=== PATIENT | male | born 1985 | race Caucasian/White ===

== ENCOUNTER 2020-06-03 19:29 | Emergency (ER) | payer BC, OTHER ==
[~2020-06-03] VITALS: Ht 182.9 cm; Wt 137.0 kg
[2020-06-03] MEDS ORDERED: IBUPROFEN 600MG TABLET PO ONE (22:00)
[2020-06-03 23:51] VITALS: BP 126/81
== END 2020-06-03 23:53 | disposition home or self-care (01) ==
LOC: ER 19:29
DX: S20.219A Contusion of unspecified front wall of thorax, initial encounter (principal); S80.12XA Contusion of left lower leg, initial encounter; S80.11XA Contusion of right lower leg, initial encounter; E11.9 Type 2 diabetes mellitus without complications; R05 Cough; V89.2XXA Person injured in unspecified motor-vehicle accident, traffic, initial encounter; Y93.89 Activity, other specified; Y92.89 Other specified places as the place of occurrence of the external cause; Y99.8 Other external cause status
CPT/HCPCS: 71045; 73590; 93005; 99284